=== PATIENT | female | born 1955 | race Caucasian/White ===

== ENCOUNTER 2016-10-18 20:10 | Emergency (ER) | payer OTHER ==
--- NOTE | 2016-10-18 20:42 | UC ---
Throat Pain/Nasal Michael HPI - HPI Summary HPI Summary: complaint of dental pain in her upper jaw that radiates into her right ear some nasal congestion for the last 2 days has had a URI for approx 2 weeks ago frequent headaches right ear pain taking extra strength tylenol without relief denies fever and chills - History of Current Complaint Chief Complaint: UCGeneralIllness Stated Complaint: SINUS COMPLAINT Time Seen by Provider: 10/18/16 20:34 Hx Obtained From: Patient - Allergies/Home Medications Allergies/Adverse Reactions: Allergies Allergy/AdvReac Type Severity Reaction Status Date / Time No Known Allergies Allergy Verified 10/18/16 20:22 Home Medications: Home Medications Acetaminophen [Tylenol 8 Hour Arthritis] 1,300 mg PO DAILY PRN 10/18/16 [ History Confirmed 10/18/16] PMH/Surg Hx/FS Hx/Imm Hx Previously Healthy: Yes - Surgical History Surgical History: Yes Surgery Procedure, Year, and Place: RIGHT KNEE SX X 3. CHOLECYSTECTOMY - Family History Known Family History: Negative: Cardiac Disease, Hypertension, Diabetes - Social History Occupation: Employed Full-time Lives: With Family Alcohol Use: Rare Substance Use Type: None Smoking Status (MU): Never Smoked Tobacco Review of Systems Constitutional: Negative Skin: Negative Eyes: Negative ENT: Dental Pain, Nasal Discharge Respiratory: Negative Cardiovascular: Negative Gastrointestinal: Negative Genitourinary: Negative Motor: Negative Neurovascular: Negative Musculoskeletal: Negative Neurological: Negative Psychological: Negative All Other Systems Reviewed And Are Negative: Yes Physical Exam Triage Information Reviewed: Yes Appearance: No Pain Distress, Well-Nourished Vital Signs: Initial Vital Signs Temp 97.8 F 10/18/16 20:16 Pulse 88 10/18/16 20:16 Resp 16 10/18/16 20:16 BP 161/99 10/18/16 20:16 Pulse Ox 99 10/18/16 20:16 Vital Signs Reviewed: Yes Eyes: Positive: Conjunctiva Clear ENT: Positive: Pharyngeal erythema, Nasal congestion, Nasal drainage, TM bulging. Negative: TM red Dental: Positive: Abscess @ - 4, Cervical Lymphadenopathy Respiratory: Positive: Lungs clear, Normal breath sounds, No respiratory distress Cardiovascular: Positive: RRR, No Murmur, Pulses Normal Abdomen Description: Positive: Nontender, Soft Musculoskeletal: Positive: No Edema Neurological: Positive: Alert Psychological Exam: Normal Skin Exam: Normal Throat Pain/Nasal Course/Dx - Differential Dx/Diagnosis Differential Diagnosis/HQI/PQRI: Sinusitis, Other - dental abscess, dental infection Provider Diagnoses: dental abscess, elevated blood pressure Discharge - Discharge Plan Condition: Stable Disposition: HOME Prescriptions: Amoxicillin/Clavulanate TAB* [Augmentin TAB 875*] 875 mg PO BID #19 tab Patient Education Materials: Dental Abscess (ED), Hypertension (ED) Referrals: SHELLEY Lorenzo [Primary Care Provider] - Additional Instructions: Your blood pressure is elevated please call your primary care for further evaluation and possible treatment of your blood pressure Start antibiotic as directed Increase fluids and rest Take acetaminophen or ibuprofen for fever or pain Please review your discharge instructions. If your symptoms do not improve please call your primary care provider or return to urgent care
[2016-10-18] MEDS ORDERED: Amoxicillin/Clavulanate TAB* 875 MG PO ONE (20:50)
[2016-10-18 21:23] VITALS: BP 162/95
== END 2016-10-18 21:22 | disposition home or self-care (01) ==
LOC: UCCORT 20:10
DX: K04.7 Periapical abscess without sinus (principal); R03.0 Elevated blood-pressure reading, without diagnosis of hypertension; Z90.49 Acquired absence of other specified parts of digestive tract
CPT/HCPCS: 99202; A9270-GY; G0463

== ENCOUNTER 2018-07-29 16:33 | Emergency (ER) | payer OTHER ==
[2018-07-29 17:59] VITALS: BP 160/102
[2018-07-29] MEDS ORDERED: Levalbuterol 0.63MG/3ML NEB* UNIT OF USE INH ONE (18:50)
[2018-07-29] MEDS ORDERED: Ipratropium 0.5MG/2.5ML NEB* 0.5 MG/2.5 ML NEB.SOLN INH ONE (18:50)
[2018-07-29] MEDS ORDERED: predniSONE TAB* 20 MG PO ONE (18:50)
--- NOTE | 2018-07-29 18:54 | UC ---
Respiratory Complaint HPI - HPI Summary HPI Summary: Patient is a 62-year-old female with a one-week history of cough and wheezing. She has a history of asthma but has not had to use any asthma medicines for at least 4 years. She thinks her symptoms are due to an allergy. She denies any chest pain or shortness of breath. She denies any chest pain or shortness of breath. - History of Current Complaint Chief Complaint: UCRespiratory Stated Complaint: ASTHMA COMPLAINT Time Seen by Provider: 07/29/18 18:41 Hx Obtained From: Patient Onset/Duration: Gradual Onset, Lasting Days Timing: Constant Severity Initially: Mild Severity Currently: Moderate Pain Intensity: 0 Pain Scale Used: 0-10 Numeric Character: Cough: Nonproductive Aggravating Factors: Exertion, Deep Breaths, Recumbent Position Alleviating Factors: Nothing Associated Signs And Symptoms: Positive: Wheezing, Nasal Congestion - Allergies/Home Medications Allergies/Adverse Reactions: Allergies Allergy/AdvReac Type Severity Reaction Status Date / Time No Known Allergies Allergy Verified 07/29/18 17:58 PMH/Surg Hx/FS Hx/Imm Hx Previously Healthy: Yes Respiratory History: Asthma - Surgical History Surgical History: Yes Surgery Procedure, Year, and Place: RIGHT KNEE SX X 3. CHOLECYSTECTOMY - Family History Known Family History: Positive: Unknown - PT ADOPTED, Diabetes - Social History Alcohol Use: Rare Substance Use Type: None Smoking Status (MU): Never Smoked Tobacco Review of Systems All Other Systems Reviewed And Are Negative: Yes Constitutional: Positive: Negative Skin: Positive: Negative Eyes: Positive: Negative ENT: Positive: Negative Respiratory: Positive: Cough Cardiovascular: Positive: Negative Gastrointestinal: Positive: Negative Genitourinary: Positive: Negative Motor: Positive: Negative Neurovascular: Positive: Negative Musculoskeletal: Positive: Negative Neurological: Positive: Negative Psychological: Positive: Negative Physical Exam Triage Information Reviewed: Yes Appearance: Well-Appearing, No Pain Distress, Well-Nourished Vital Signs: Initial Vital Signs Temp 98 F 07/29/18 17:51 Pulse 95 07/29/18 17:51 Resp 17 07/29/18 17:51 BP 160/102 07/29/18 17:51 Pulse Ox 100 07/29/18 17:51 Vital Signs Reviewed: Yes Eyes: Positive: Conjunctiva Inflamed - L. Negative: Discharge ENT: Positive: Hearing grossly normal, Nasal congestion, Uvula midline. Negative: Nasal drainage, Tonsillar swelling, Tonsillar exudate, Trismus, Hoarse voice, Sinus tenderness Neck: Positive: Supple, Nontender, No Lymphadenopathy Respiratory: Positive: No respiratory distress, No accessory muscle use, Wheezing Cardiovascular: Positive: RRR Musculoskeletal: Positive: ROM Intact, No Edema Neurological: Positive: Alert Psychological Exam: Normal Skin Exam: Normal UC Diagnostic Evaluation - Laboratory O2 Sat by Pulse Oximetry: 100 - normal/not hypoxic Re-Evaluation - Re-Evaluation Second Eval Re-Evaluation Time: 19:33 Change: Improved - lungs clear to auscultation Respiratory Course/Dx - Differential Dx/Diagnosis Provider Diagnosis: Bronchospasm with bronchitis, acute Discharge - Sign-Out/Discharge Documenting (check all that apply): Patient Departure All imaging exams completed and their final reports reviewed: No Studies - Discharge Plan Condition: Stable Disposition: HOME Prescriptions: Levalbuterol HFA INHALER* [Xopenex Hfa Inhaler*] 2 puff INH QID PRN #1 mdi PRN Reason: Wheezing predniSONE [Deltasone 20 MG TAB] 40 mg PO DAILY #8 tab Patient Education Materials: Bronchospasm (ED) Referrals: No Primary Care Phys,NOPCP [Primary Care Provider] - Additional Instructions: you need to find a local MD to monitor your BP - Billing Disposition and Condition Condition: STABLE Disposition: Home
[2018-07-29] MEDS ORDERED: Albuterol HFA INHALER* 8 gm MDI INH ONE (19:32)
== END 2018-07-29 19:48 | disposition home or self-care (01) ==
LOC: UCCORT 16:33
DX: J20.9 Acute bronchitis, unspecified (principal)
CPT/HCPCS: 99213; A9270-GY; G0463; J7512